=== PATIENT | male | born 1960 | race Caucasian/White ===

== ENCOUNTER 2019-01-21 10:34 | Outpatient (REF) | payer SELFPAY ==
[2019-01-21 13:26] LABS: ALT 25 U/L (12-78); AST 16 U/L (15-37); Albumin 3.8 g/dL (3.4-5.0); Alkaline Phosphatase 97 U/L (46-116); Anion Gap 9.9 mmol/L (3-11); BUN 19 mg/dL (7-18); Bilirubin, Total 0.4 mg/dL (0.2-1.0); CO2 27.1 mmol/L (21.0-32.0); CREATININE 1.04 mg/dL (0.70-1.30); Chloride 105 mmol/L (98-107); Glucose 99 mg/dL (70-100); Potassium 3.7 mmol/L (3.5-5.1); Sodium 142 mmol/L (136-145); Total Protein 6.5 g/dL (6.4-8.2)
== END 2019-01-21 10:54 ==
LOC: NCHCN 10:34
PROVIDERS: PCP Nurse Practitioner; Visit Provider Nurse Practitioner
DX: I10 Essential (primary) hypertension (principal)
CPT/HCPCS: 80053

== ENCOUNTER 2020-02-12 08:19 | Outpatient (REF) | payer SELFPAY ==
[2020-02-12 16:52] LABS: ALT 25 U/L (16-63); AST 16 U/L (15-37); Albumin 3.9 g/dL (3.4-5.0); Alkaline Phosphatase 84 U/L (46-116); Anion Gap 4.5 mmol/L (3-11); BUN 18 mg/dL (7-18); Bilirubin, Total 0.7 mg/dL (0.2-1.0); CO2 30.5 mmol/L (21.0-32.0); CREATININE 0.92 mg/dL (0.70-1.30); Calcium 8.6 mg/dL (8.5-10.1); Calculated LDL 101 mg/dL (<100); Chloride 107 mmol/L (98-107); Cholesterol 160 mg/dL (<200); Glucose 105 mg/dL (74-106); HDL Cholesterol 44 mg/dL (40-60); Potassium 4.2 mmol/L (3.5-5.1); Sodium 142 mmol/L (136-145); Total Protein 6.5 g/dL (6.4-8.2); Triglyceride 77 mg/dL (<150)
== END 2020-02-12 08:39 ==
LOC: NCHCN 08:19
PROVIDERS: PCP Nurse Practitioner; Visit Provider Nurse Practitioner
DX: I10 Essential (primary) hypertension (principal); Z13.220 Encounter for screening for lipoid disorders; Z00.00 Encounter for general adult medical examination without abnormal findings
CPT/HCPCS: 80053; 80061

== ENCOUNTER 2021-02-07 08:18 | Outpatient (REF) | payer SELFPAY ==
[2021-02-07 17:52] LABS: ALT 20 U/L (16-63); AST 15 U/L (15-37); Albumin 3.9 g/dL (3.4-5.0); Alkaline Phosphatase 93 U/L (46-116); Anion Gap 7.6 mmol/L (3-11); BUN 10 mg/dL (7-18); Bilirubin, Total 0.5 mg/dL (0.2-1.0); CO2 29.4 mmol/L (21.0-32.0); CREATININE 0.9 mg/dL (0.70-1.30); Calcium 8.9 mg/dL (8.5-10.1); Calculated LDL 89 mg/dL (<100); Chloride 105 mmol/L (98-107); Cholesterol 151 mg/dL (<200); Glucose 95 mg/dL (74-106); HDL Cholesterol 50 mg/dL (40-60); Potassium 4.6 mmol/L (3.5-5.1); Sodium 142 mmol/L (136-145); Total Protein 6.6 g/dL (6.4-8.2); Triglyceride 63 mg/dL (<150)
== END 2021-02-07 08:19 | disposition home or self-care (01) ==
LOC: NCHCN 08:18
PROVIDERS: PCP Nurse Practitioner; Visit Provider Nurse Practitioner
DX: I10 Essential (primary) hypertension (principal); R00.2 Palpitations; F41.9 Anxiety disorder, unspecified
CPT/HCPCS: 80053; 80061

== ENCOUNTER → 2021-06-21 01:05 | Outpatient (CLI) | payer SELFPAY ==
--- NOTE | 2021-06-21 | DI.CT_ITS ---
Exam(s) CT ABDOMEN PELVIS W EXAM: CT ABDOMEN PELVIS W CLINICAL HISTORY: CONSTIPATION K59.00 LUQ ABD PAIN R10.12 TECHNIQUE: COMPARISON: No exams were available for comparison FINDINGS: CT examination of the abdomen and pelvis was performed with bolus infusion of 100 cc of Omnipaque 350 . Images obtained through the lung bases are unremarkable. The liver appears normal with no evidence of a focal mass. Spleen is unremarkable in appearance.. Gallbladder and bile ducts are unremarkable. Pancreas is unremarkable in appearance. Adrenals appear normal bilaterally. Kidneys appear normal with no evidence of solid renal mass, hydronephrosis, or nephrolithiasis. Ther e are small bilateral presumed renal cysts. The urinary bladder appears thick walled, this may be secondary to chronic bladder outlet obstruction versus cystitis. Prostate is moderately enlarged. Unremarkable bladder. There is no evidence of abdominal or pelvic adenopathy. Abdominal aorta is of normal diameter and no abnormality is seen involving major visceral branches.. Appendix is normal. No evidence diverticulitis or bowel obstruction. No significant abdominal wall hernia seen. Impression: Urinary bladder wall thickening noted, chronic bladder outlet obstruction versus cystitis. No additional significant findings. RADIATION DOSE DELIVERED: 693.5mGy.cm Total DLP 693.5mGy.cm Total DLP 14.21mGy CTDIvol DATA REPOSITORY: All CT scans at this facility are submitted to the National Radiology Data Registry (NRDR) Dose Index Registry (DIR) with the [employer] ([employer]). RADIATION OPTIMIZATION: All CT scans at this facility use at least one of these dose optimization te chniques: automated exposure control; mA and/or kV adjustment per patient size (includes targeted exa ms where dose is matched to clinical indication); or iterative reconstruction.
[2021-06-21 08:36] LABS: CREATININE 0.9 mg/dL (0.70-1.30)
[2021-06-21] MEDS: Omnipaque 350 MG/ML 100 ML BTL IJ (09:45)
[2021-06-21] MEDS: Omnipaque 350 MG/ML 50 ML BTL IJ (09:46)
[2021-06-21] MEDS: Breeza Beverage 473 ML BTL PO (09:50)
== END ==
PROVIDERS: PCP Nurse Practitioner; Visit Provider Nurse Practitioner
DX: K59.00 Constipation, unspecified (principal); R10.12 Left upper quadrant pain; R93.41 Abnormal radiologic findings on diagnostic imaging of renal pelvis, ureter, or bladder
CPT/HCPCS: 74177; 82565; J3490; Q9967

== ENCOUNTER 2023-12-24 17:43 | Outpatient (REF) | payer SELFPAY ==
[2023-12-24 18:52] LABS: HCT 47.2 % (40.0-50.0); HGB 15.8 g/dL (13.5-17.5); MCH 29.7 pg (27.0-33.0); MCHC 33.5 % (32.0-36.0); MCV 89 fL (80-95); MPV 11.1 fL (8.0-11.0); Platelet Count 250 10^3/uL (130-400); RBC 5.32 10^6/uL (4.36-5.78); RDW 12.6 % (11.8-14.1); RDW-SD 41.1 fL; WBC 6.56 10^3/uL (4.4-10.8)
[2023-12-24 19:15] LABS: ALT 20 U/L (16-63); AST 19 U/L (15-37); Albumin 3.9 g/dL (3.4-5.0); Alkaline Phosphatase 101 U/L (46-116); Anion Gap 8.3 mmol/L (3-11); BUN 6 mg/dL (7-18); Bilirubin, Total 0.49 mg/dL (0.2-1.0); CO2 30.7 mmol/L (21.0-32.0); CREATININE 0.9 mg/dL (0.70-1.30); Calcium 9.2 mg/dL (8.5-10.1); Chloride 102 mmol/L (98-107); Estimated GFR 95.37 (mL/min/1.73m2); Glucose 101 mg/dL (74-106); Potassium 3.7 mmol/L (3.5-5.1); Sodium 141 mmol/L (136-145); TSH (W/Ref FT4) 0.76 uIU/mL (0.36-3.74); Total Protein 7.2 g/dL (6.4-8.2)
== END 2023-12-24 17:44 | disposition home or self-care (01) ==
LOC: NCHCN 17:43
PROVIDERS: Visit Provider Nurse Practitioner Family
DX: I10 Essential (primary) hypertension (principal)
CPT/HCPCS: 80053; 85027; 84443

== ENCOUNTER 2024-08-14 11:29 | Outpatient (REF) | payer MEDICARE, SELFPAY ==
[2024-08-14 15:28] LABS: HCT 49.6 % (40.0-50.0); HGB 16.6 g/dL (13.5-17.5); MCHC 33.5 % (32.0-36.0); MCV 90 fL (80-95); MPV 11.1 fL (8.0-11.0); Platelet Count 278 10^3/uL (130-400); RBC 5.54 10^6/uL (4.36-5.78); RDW 13.1 % (11.8-14.1); RDW-SD 43.2 fL; WBC 4.97 10^3/uL (4.4-10.8)
[2024-08-14 15:56] LABS: ALT 24 U/L (16-63); AST 17 U/L (15-37); Alkaline Phosphatase 113 U/L (46-116); Anion Gap 7.3 mmol/L (3-11); BUN 12 mg/dL (7-18); Bilirubin, Total 0.6 mg/dL (0.2-1.0); CO2 31.7 mmol/L (21.0-32.0); CREATININE 0.8 mg/dL (0.70-1.30); Calcium 9.4 mg/dL (8.5-10.1); Chloride 102 mmol/L (98-107); Estimated GFR 98.21 (mL/min/1.73m2); Glucose 97 mg/dL (74-106); Potassium 4.9 mmol/L (3.5-5.1); Sodium 141 mmol/L (136-145); Total Protein 6.8 g/dL (6.4-8.2)
== END 2024-08-14 11:30 | disposition home or self-care (01) ==
LOC: NCHCN 11:29
PROVIDERS: Visit Provider Nurse Practitioner Family
DX: R00.2 Palpitations (principal)
CPT/HCPCS: 80053; 85027

== ENCOUNTER 2024-08-25 00:42 | Outpatient (CLI) | payer MEDICARE, SELFPAY ==
--- NOTE | 2024-08-25 | DI.NM_ITS ---
APPROVED REPORT Exam: Exercise Treadmill Patient Location: Out-Patient Room/Bed: Stress Nurse: Sumaya Quinones RN Ordering Provider:KYE BABINRoxanna SCHWARTZ, Contact Number: [phone] BMI: 20.94 Baseline Rhythm: Sinus Rhythm. Comment: Rare PAC's. Indications: Other Forms of Dyspnea. Medical History Medical History: Anxiety; BPH; FAN; COPD; GERD; HTN; Palpitations; Current Tobacco User. Cardiac Medications: Albuterol Sulfate; Aspirin; Hydrochlorothiazide; Lorazepam; Losartan; Mirtazapin e; Omeprazole. Allergies: Codeine; Lisinopril. Cardiac Risk Factors: Family Hx; HTN; COPD; Current Tobacco User. Previous Cardiac Procedures: None. Pretest Chest Pain Characteristics: None. Exercise History: Indeterminate. Physical Disabilities: Shortness of breath with exertion. Lung Sounds: Clear bilaterally throughout, anterior and posterior. Heart Sounds: S1 and S2 auscultated. Stress Test Details Test: Exercise stress testing was performed using a Clarence protocol. Nuclear Acquisition: Rest Tc-99m/Stress Tc-99m 1 day Rest Isotope: Tc-99m Sestamibi. Dose: 10.0 Date: 08/25/2024 Injection Time: 1105 Stress Isotope: Tc-99m Sestamibi. Dose: 30.0 Date: 08/25/2024 Injection Time: 1310 HR Resting HR Supine: 96 bpm Max Heart Rate (APMHR): 155 bpm Resting HR Standin bpm Target HR (85% APMHR): 132 bpm Max HR Achieved: 133 bpm % of APMHR: 86 Recovery HR: 87 bpm HR response to stress: Normal HR response to stress. BP Resting BP Supine: 160/78 mmHg Resting BP Standin/78 mmHg Max BP: 166/102 mmHg Recovery BP: 154/84 mmHg BP response to stress: Normal blood pressure response to stress. ECG Resting ECG: Sinus Rhythm. Ectopy: Rare PAC's. Stress ECG: Sinus Tachycardia. ST Change: No significant ST segment changes noted. Arrhythmia: None. Recovery ECG: Sinus Rhythm. Recovery ST Change: No significant ST segment changes noted. Recovery Arrhythmia: Rare PAC's. Clinical Reason for Termination: Target HR Achieved; Dyspnea. Stress Symptoms: Dyspnea. Exercise duration: 02 min56 sec Highest Stage Reached: Stage 1: 1.7 mph at 10% grade. Exercise capacity: 4.64 METs Angina Score: None Bolom Treadmill Score: 2.7 Rate Pressure Product: 13938 Stress ECG Conclusion 1. The resting electrocardiogram was normal 2. Patient exercised on the Clarence protocol completed workload of 4.64 METS 3. Normal heart rate and blood pressure response to exercise. The patient achieved 86% of maximal pr edicted heart rate for age 4. There was no electrocardiographic evidence of myocardial ischemia 5. There were no significant dysrhythmias 6. See MPI report Bloom Treadmill Score is 2.7 which is Moderate risk. Stress Test Summary STAGE Time (mins) Speed (mph) Grade (%) HR BP SpO2 SYMPTOMS METS Supine 96 160/78 93 Standing 107 164/78 92 1 3 1.7 10 128 91 Pt. c/o mild shortness of breath. 4.5 1 min recovery 113 166/102 89 Pt. c/o mild shortness of breath. 3 min recovery 93 154/98 92 Pt. c/o minimal shortness of breath. 6 min recovery 87 154/84 92 Pt. denies any shortness of breath; states that all symptoms roberson ve resolved back to his baseline. Pt. was conversing pleasantly with nursing staff upon leaving the Stress Lab. Pt. left ambulatory in no apparent distress. MPI Conclusion Myocardial perfusion is normal. There is no ischemia or evidence of prior infarction Ejection fraction is 81% with hyperdynamic wall motion
== END 2024-08-25 01:02 ==
LOC: DI 00:43
PROVIDERS: Visit Provider Internal Medicine Cardiovascular Disease
DX: R06.09 Other forms of dyspnea (principal)
CPT/HCPCS: 78452; 93016; 93018; 93017

== ENCOUNTER 2024-08-26 01:57 | Outpatient (CLI) | payer MEDICARE, SELFPAY ==
[2024-08-26] MEDS: Inhaler, Assist Device 1 EACH MC (09:13)
[2024-08-26] MEDS: Levalbuterol HFA 15 GM INH 4 PUFF IH (09:13)
--- NOTE | 2024-09-01 14:28 | W.PFT ---
Date of service: 08/26/24 Time of Service: 08:03 Pulmonary Function Test Result Indications: COPD Interpretation Spirometry: Severe airflow limitation. Significant bronchodilator response. Lung Volumes: Air trapping present Diffusion Capacity: Reduced diffusion Airway Pressure: Increased airways resistance Impression Severe airflow obstruction with air trapping and reduced diffusion. Clinical Correlation therefore is recommended.
== END 2024-08-26 01:58 | disposition home or self-care (01) ==
LOC: RT 01:57
PROVIDERS: Visit Provider Student in an Organized Health Care Education/Training Program
DX: J44.9 Chronic obstructive pulmonary disease, unspecified (principal)
CPT/HCPCS: 94060; 94726; 94729

== ENCOUNTER 2025-02-26 17:05 | Outpatient (REF) | payer MEDICARE, SELFPAY ==
[2025-02-26 18:58] LABS: HCT 47.6 % (40.0-50.0); HGB 16.0 g/dL (13.5-17.5); MCH 30.0 pg (27.0-33.0); MCHC 33.6 % (32.0-36.0); MCV 89 fL (80-95); MPV 10.7 fL (8.0-11.0); Platelet Count 268 10^3/uL (130-400); RBC 5.34 10^6/uL (4.36-5.78); RDW 13.2 % (11.8-14.1); RDW-SD 43.3 fL; WBC 6.65 10^3/uL (4.4-10.8)
[2025-02-26 19:18] LABS: ALT 18 U/L (16-63); AST 17 U/L (15-37); Albumin 4.0 g/dL (3.4-5.0); Alkaline Phosphatase 105 U/L (46-116); Anion Gap 7.8 mmol/L (3-11); BUN 16 mg/dL (7-18); Bilirubin, Total 0.4 mg/dL (0.2-1.0); CO2 30.2 mmol/L (21.0-32.0); Calcium 9.3 mg/dL (8.5-10.1); Chloride 99 mmol/L (98-107); Estimated GFR 98.21 (mL/min/1.73m2); Glucose 103 mg/dL (74-106); Potassium 4.9 mmol/L (3.5-5.1); Sodium 137 mmol/L (136-145); TSH (W/Ref FT4) 1.38 uIU/mL (0.36-3.74); Total Protein 7.0 g/dL (6.4-8.2)
== END 2025-02-26 17:06 | disposition home or self-care (01) ==
LOC: NCHCN 17:05
PROVIDERS: Visit Provider Nurse Practitioner Family
DX: F41.9 Anxiety disorder, unspecified (principal); R63.4 Abnormal weight loss; F17.219 Nicotine dependence, cigarettes, with unspecified nicotine-induced disorders
CPT/HCPCS: 80053; 85027; 84443